=== PATIENT | female | born 1965 | race Caucasian/White ===

== ENCOUNTER → 2017-11-22 15:42 | Outpatient (CLI) | payer OTHER, SELFPAY | PROVIDERS: Family Provider Family Medicine; PCP Family Medicine; Visit Provider Otolaryngology Otolaryngology/Facial Plastic Surgery | DX: J32.9 Chronic sinusitis, unspecified (principal) | CPT/HCPCS: 87070; 87077; 87186; 87205 ==

== ENCOUNTER 2018-01-21 09:34 | Day surgery (SDC) | payer OTHER, SELFPAY ==
[2018-01-21] VITALS (7 sets, daily range): BP systolic 137–180; BP diastolic 89–103; PULSE 52–68; RESP 18; TEMP 36.3–36.5; O2SAT 94–99; BMI 35.8
--- NOTE | 2018-01-21 | ETH_PTH ---
PATIENT: LIVAN CRESPO LOC: [facility] [place] U#:[id number] AGE/SX: 52/F ROOM: RE01/21/[address]: Dr. Ugo Cunningham MD : 1965 BED: DIS: 01/21/2018 SPEC #: [id number] RECD: 01/21/18 15:08 STATUS: RYAN SHANTI #: [id number] VANNA: 01/21/18 00:[address]: Ugo Cunningham DEPT: SURGICAL PATHOLOGY RECD BY: Humphrey Kramer ENTERED: 01/21/18 15:09 SP TYPE: ETH TISS OTHR DR: Dr. Calderon Samson MD Tissues: A - Ethmoid sinus, NOS B - Ethmoid sinus, NOS Procedures: Decalcification bone/plaque Surgery Specimen Level IV HEADER OPERATION: Functional endoscopic sinus surgery PRE-OP DIAGNOSIS: Allergic rhinitis, chronic pansinusitis TISSUE SUBMITTED: A ? Right ethmoid/maxillary sinus contents, B ? Left ethmoid/maxillary sinus contents MICROSCOPIC DIAGNOSIS A. Right ethmoid/maxillary sinus contents: Fragments of respiratory mucosa including turbinates with chronic inflammation and bone. B. Left ethmoid/maxillary sinus contents: Fragments of respiratory mucosa including turbinates with chronic inflammation and bone. JOSE RAMON:oscar 01/24/18 MICROSCOPIC DESCRIPTION Slides are reviewed. GROSS DESCRIPTION A - Received in fixative is one container labeled with the patient's name and designated right ethmoid/ maxillary sinus contents. The specimen consists of multiple fragments of [place] soft tissue mixed with fragments of bone including the turbinates that in aggregate measure 4 x 3 x 0.3 cm. The entire specimen is submitted in two cassettes after decalcification. B - Received in fixative is one container labeled with the patient's name and designated left ethmoid/ maxillary sinus contents. The specimen consists of multiple fragments of hemorrhagic, frothy mucoid tissue mixed with fragments of bone including turbinates that in aggregate measure 5 x 5 x 0.3 cm. Electrical Supervisor tissue is submitted in three cassettes after decalcification. / JOSE RAMON:oscar 01/20/18 TC:3 CPT: 27221 x2, 45452 x2
--- NOTE | 2018-01-21 09:50 | EKG12_ITS ---
Test Reason : PRE-OP Blood Pressure : / mmHG Vent. Rate : 055 BPM Atrial Rate : 055 BPM P-R Int : 202 ms QRS Dur : 086 ms QT Int : 436 ms P-R-T Axes : 039 007 016 degrees QTc Int : 417 ms Sinus bradycardia Otherwise normal ECG Confirmed by JUSTO MORALES, ANDREW ([id number]), news videotape editor ALYSSA MAHMOOD ([id number]) on 01/29/2018 3:28:41 PM Referred By: Genaro Cunningham Confirmed By:ANDREW KEMP MD
[2018-01-21 10:24] LABS: Anion Gap 7 (5-15); BUN 13 mg/dL (7-18); BUN/Creat Ratio 16.6 RATIO (10-20); Calcium,Total 8.7 mg/dL (8.5-10.1); Chloride 106 mmol/L (98-107); Creatinine, Serum 0.78 mg/dL (0.55-1.02); EST Glomerular Filtration Rate 82 mL/min (>60); Est Glom Filt Rate - Afr Amer 100 mL/min (>60); Glucose 100 mg/dL (74-106); Potassium 4.2 mmol/L (3.5-5.1); Sodium Level 140 mmol/L (136-145)
[2018-01-21] MEDS: Oxymetazoline 0.05% 1 SPRAY SPRAY.BTL 15 SPRAY (10:46)
--- NOTE | 2018-01-21 10:46 | PCM.OPRPT ---
Problem List (1) Chronic pansinusitis Status: Chronic Report of Operation Date of Procedure: 01/21/18 Pre-Operative Diagnosis: chronic pansinusitis Post-Operative Diagnosis: chronic pansinusitis Surgery/Procedure Performed:: 1. endoscopic anterior ethmoidectomy, right and left. 2. endoscopic maxillary antrostomy, right and left. 3. frontal sinus exploration with tissue removal, right and left. 4. endoscopic sphenoidotomy with tissue removal, right and left. 5. computer image guidance Type of Anesthesia:: General Estimated Blood Loss (mL): 5cc Description of Procedure: on the day of the procedure, after appropriate informed consent was obtained, the patient was brought to the operating room and placed in supine position on the operating table. he was placed under general endotracheal anesthesia by the anesthesiologist. the endotracheal tube was secured, the eyes were lubricated. the image-guidance facial pads were placed. the bilateral nasal cavities were decongested with oxymetazoline-soaked pledgets. the zero degree endoscope was used to evaluate the nose. the right and left superior attachment of the middle turbinate and polyps were injected with lidocaine/epinephrine. the left nose was visualized with the endoscope. the acclarent balloon sinuplasty kit was used to probe the frontal sinus lateral to the superior attachment of the middle turbinate. the balloon was advanced after transillumination was seen in the frontal area and inflated to 12atm and removed. contents were evacuated. an antrostomy and uncinectomy was performed with a combination of a devi elevator and a blakesley. a back biter was used to widen the antrostomy and contents were removed. the ethmoid bulla was entered bluntly with a suction. an anterior ethmoidectomy was performed with a curette and an upgoing blakesley. this was taken superiorly to the skull base and laterally to the lamina. a stankewicz maneuver was performed and no laminar defect was seen. a mushroom punch was used to widen the natural sphenoid os and sphenoid contents were removed. endoscopic scizzors were used to remove the anterior/inferior portion of the middle turbinate. pledgets were placed and hemostasis was achieved. the right nose was visualized with the endoscope. the acclarent balloon sinuplasty kit was used to probe the frontal sinus lateral to the superior attachment of the middle turbinate. the balloon was advanced after transillumination was seen in the frontal area and inflated to 12atm and removed. contents were evacuated. an antrostomy and uncinectomy was performed with a combination of a devi elevator and a blakesley. a back biter was used to widen the antrostomy and contents were removed. the ethmoid bulla was entered bluntly with a suction. an anterior ethmoidectomy was performed with a curette and an upgoing blakesley. this was taken superiorly to the skull base and laterally to the lamina. a stankewicz maneuver was performed and no laminar defect was seen. a mushroom punch was used to widen the natural sphenoid os and sphenoid contents were removed. endoscopic scizzors were used to remove the anterior/inferior portion of the middle turbinate. pledgets were placed and hemostasis was achieved. the patient was awoken from anesthesia and transferred to the PACU in stable condition.
[2018-01-21] MEDS: Clindamycin 900 MG/50 ML BAG 75 MG IV (10:53)
--- NOTE | 2018-01-21 10:56 | PCM.DC ---
- Discharge Diagnoses Current Active Problems: Current Active and Chronic Problems Chronic pansinusitis (Chronic) You will use the following diet at home:: No restrictions Discharge Activity: Return to Normal Activity Call your doctor if your incision/area has: Increased Pain/ Swelling Additional Dressing/Incision Instructions:: irrigate nose 5-6 times per day with saline Allergies/Adverse Reactions: Allergies erythromycin base [Erythromycin Base] Adverse Reaction (Verified 01/14/18 14:33) Nausea/Vom/Diarrhea Medications to take at Discharge Atenolol [Tenormin (beta laina)] 25 mg PO DAILY 08/19/14 buPROPion SR [Wellbutrin Sr] 150 mg PO DAILY 08/19/14 ALPRAZolam [Xanax] 0.5 mg PO DAILY PRN PRN 05/19/15 Loratadine [Claritin] 10 mg PO PRN PRN 05/19/15 Ibuprofen [Motrin] 800 mg PO TID PRN PRN #20 tablet 02/22/16 Multivitamin [Daily Multiple Vitamin] 1 each PO DAILY 01/14/18 Doxycycline 100 mg PO DAILY #5 cap 01/21/18 Fluticasone 0.05% [Flonase Nasal [place]] 2 spray NASAL DAILY 01/21/18 Hydrocodone/Acetaminophen [[place] 5-325 Tablet] 1 ea PO Q6H PRN 3 Days #10 tab 01/21/18 MethylPREDNISolone DosePak [Medrol DosePak] 4 mg PO UD #1 box 01/21/18 The following prescriptions were given: Doxycycline 100 mg PO DAILY #5 cap MethylPREDNISolone DosePak [Medrol DosePak] 4 mg PO UD #1 box Hydrocodone/Acetaminophen [[place] 5-325 Tablet] 1 ea PO Q6H PRN 3 Days #10 tab PRN Reason: Pain Primary Care Physician: Calderon Samson MD [Primary Care Provider] - Please Follow Up With: Jori Cunningham MD When: 1 week
== END 2018-01-21 14:37 | disposition home or self-care (01) ==
LOC: SDC 09:36 → AC 09:36
PROVIDERS: Family Provider Family Medicine; PCP Family Medicine; Visit Provider Otolaryngology
PROC: (CPT 31259; principal; 2018-01-21 10:30)
DX: J32.4 Chronic pansinusitis (principal); I10 Essential (primary) hypertension; F32.9 Major depressive disorder, single episode, unspecified; J30.81 Allergic rhinitis due to animal (cat) (dog) hair and dander; J30.89 Other allergic rhinitis; J30.1 Allergic rhinitis due to pollen
CPT/HCPCS: 00160; 31259; 31267; 80048; 88305; 88311; 93005; J7120; J2405

== ENCOUNTER → 2018-11-24 13:58 | Outpatient (CLI) | payer OTHER, SELFPAY ==
--- NOTE | 2018-11-24 14:02 | BI_ITS ---
MAMMOGRAPHY - BILATERAL DIAGNOSTIC REASON FOR EXAM: Female, 53 years old. Right axillary thickening. PERTINENT HISTORY: Non-contributory. TECHNIQUE: Digital bilateral breast ray (3D mammographic acquisition) in the CC and MLO projections. 2-D mediolateral oblique (MLO) and craniocaudad (CC) views of both breasts were obtained. CAD: Full Field Digital Mammography with Computer Added Detection was performed. COMPARISON: Comparison is made with prior study dated August 19, 2015 and August 13, 2014. FINDINGS: Breast Composition: There are scattered areas of fibroglandular density. There are no dominant masses or suspicious calcifications. No other significant abnormalities are identified. There has been no significant change since the prior study. BI/DIAG MAMM W/CAD, BILAT IMPRESSION: Stable bilateral diagnostic mammogram. With the patient's history of fullness in the right axillary region, correlation with ultrasound is recommended. ASSESSMENT CATEGORY: BIRADS Category 0: Incomplete. Need additional imaging evaluation. A letter regarding these results will be sent to the patient by the facility within 30 days. Approximately 10% of breast cancers are not detected by mammography. A normal mammogram should not delay biopsy of a clinically suspicious abnormality. Electronically Signed: John Paul Smith, at 15:59 EDT , Service support ,
--- NOTE | 2018-11-24 14:15 | US_ITS ---
STUDY: ULTRASOUND BREAST - RIGHT REASON FOR EXAM: Female, 53 years old. Right axillary fullness. TECHNIQUE: Axial and longitudinal images of the RIGHT breast were performed with a high resolution ultrasound transducer. COMPARISON: Comparison is made with prior mammogram done earlier today. FINDINGS: RIGHT Breast: Dense fibroglandular tissue is seen in the upper outer quadrant of the right breast. No solid or cystic mass lesion is seen. US/Breast Limited Unilateral IMPRESSION: Unremarkable sonogram of the upper outer quadrant of the right breast. ASSESSMENT CATEGORY: BIRADS Category 2: Benign. A letter regarding these results will be sent to the patient by the facility within 30 days. Electronically Signed: John Paul Smith, at 16:00 EDT , Service support ,
== END ==
PROVIDERS: Family Provider Family Medicine; PCP Family Medicine; Referring Provider Obstetrics & Gynecology; Visit Provider Obstetrics & Gynecology
DX: N63.10 Unspecified lump in the right breast, unspecified quadrant (principal)
CPT/HCPCS: 76642; 77062; 77066; G0279

== ENCOUNTER 2021-09-08 10:13 | Outpatient (CLI) | payer OTHER, SELFPAY ==
--- NOTE | 2021-09-08 10:16 | BI_ITS ---
MAMMOGRAPHY - BILATERAL SCREENING REASON FOR EXAM: Female, 55 years old. Routine annual screening examination. PERTINENT HISTORY: Non-contributory. TECHNIQUE: Digital bilateral breast scooby (3D mammographic acquisition) in the CC and MLO projections. 2-D mediolateral oblique (MLO) and craniocaudad (CC) views of both breasts were obtained. CAD: Full Field Digital Mammography with Computer Added Detection was performed. COMPARISON: Comparison is made with prior study dated 08/19/2015 and 11/24/2018. FINDINGS: Breast Composition: There are scattered areas of fibroglandular density. There are no dominant masses or suspicious calcifications. No other significant abnormalities are identified. There has been no significant change since the prior study. BI/SCRN MAMM (CAD)W/SCOOBY BILAT IMPRESSION: Stable bilateral screening mammogram. Yearly follow-up mammogram recommended. (A) ASSESSMENT CATEGORY: BIRADS Category 1: Negative. A letter regarding these results will be sent to the patient by the facility within 30 days. Approximately 10% of breast cancers are not detected by mammography. A normal mammogram should not delay biopsy of a clinically suspicious abnormality. [id number] Electronically Signed: John Paul Smith MD at 12:17 EST , Service support ,
== END 2021-09-08 23:59 | disposition short-term general hospital (02) ==
PROVIDERS: PCP Student in an Organized Health Care Education/Training Program; Referring Provider Obstetrics & Gynecology; Visit Provider Obstetrics & Gynecology
DX: Z12.31 Encounter for screening mammogram for malignant neoplasm of breast (principal)
CPT/HCPCS: 77063; 77067

== ENCOUNTER → 2022-09-14 | Outpatient (CLI) | payer OTHER, SELFPAY ==
--- NOTE | 2022-09-14 08:57 | BI_ITS ---
MAMMOGRAPHY - BILATERAL SCREENING REASON FOR EXAM: Female, 56 years old. Routine annual screening examination. PERTINENT HISTORY: Non-contributory. TECHNIQUE: Digital bilateral breast scooby (3D mammographic acquisition) in the CC and MLO projections. 2-D mediolateral oblique (MLO) and craniocaudad (CC) views of both breasts were obtained. CAD: Full Field Digital Mammography with Computer Added Detection was performed. COMPARISON: Comparison is made with prior examination dated 09/08/2021 and 11/24/2018. FINDINGS: Breast Composition: There are scattered areas of fibroglandular density. There are no dominant masses or suspicious calcifications. Stable small benign-appearing bilateral axillary lymph nodes. No other significant abnormalities are identified. There has been no significant change since the prior study. BI/SCRN MAMM (CAD)W/SCOOBY BILAT IMPRESSION: Stable bilateral screening mammogram. Yearly follow-up mammogram recommended. (A) ASSESSMENT CATEGORY: BIRADS Category 2: Benign. A letter regarding these results will be sent to the patient by the facility within 30 days. Approximately 10% of breast cancers are not detected by mammography. A normal mammogram should not delay biopsy of a clinically suspicious abnormality. [id number] Electronically Signed: John Paul Smith MD at 10:02 EST ,
== END | disposition home or self-care (01) ==
LOC: OPBI 08:56
PROVIDERS: PCP Student in an Organized Health Care Education/Training Program; Referring Provider Student in an Organized Health Care Education/Training Program; Visit Provider Student in an Organized Health Care Education/Training Program
DX: Z12.31 Encounter for screening mammogram for malignant neoplasm of breast (principal)
CPT/HCPCS: 77063; 77067

== ENCOUNTER → 2023-10-16 | Outpatient (CLI) | payer OTHER, SELFPAY ==
--- NOTE | 2023-10-16 12:17 | BI_ITS ---
MAMMOGRAPHY - BILATERAL SCREENING REASON FOR EXAM: Female, 57 years old. Routine annual screening examination. PERTINENT HISTORY: Non-contributory. TECHNIQUE: Digital bilateral breast scooby (3D mammographic acquisition) in the CC and MLO projections. 2-D mediolateral oblique (MLO) and craniocaudad (CC) views of both breasts were obtained. CAD: Full Field Digital Mammography with Computer Added Detection was performed. COMPARISON: Comparison is made with prior study dated September 14, 2022 and September 08, 2021. FINDINGS: Breast Composition: There are scattered areas of fibroglandular density. There are no dominant masses or suspicious calcifications. Stable small benign-appearing bilateral axillary lymph nodes. No other significant abnormalities are identified. There has been no significant change since the prior study. BI/SCRN MAMM (CAD)W/SCOOBY BILAT IMPRESSION: Stable bilateral screening mammogram. Yearly follow-up mammogram recommended. (A) ASSESSMENT CATEGORY: BIRADS Category 2: Benign. A letter regarding these results will be sent to the patient by the facility within 30 days. Approximately 10% of breast cancers are not detected by mammography. A normal mammogram should not delay biopsy of a clinically suspicious abnormality. [id number] Electronically Signed: John Paul Smith MD at 13:44 EST ,
--- OUTSIDE RECORDS SUMMARY | 2023-10-16 12:29 | XMS RPT_ITS | CCD ---
Author Name Unknown Address [address] [place] [address] Organization [facility] Care Team Providers Care Ring Packer Name Role Phone RONDA DELGADO MD Consulting Unavailable KIKI HOLMAN Admitting Unavailable KIKI HOLMAN Primary Care Unavailable KIKI HOLMAN Attending Unavailable PROVIDER, UNKNOWN Consulting Unavailable PROVIDER, UNKNOWN Consulting Unavailable RONDA DELGADO MD Admitting Unavailable RONDA DELGADO MD Primary Care Unavailable RONDA DELGADO MD Consulting Unavailable RONDA DELGADO MD Attending Unavailable PROVIDER, UNKNOWN Consulting Unavailable PROVIDER, UNKNOWN Consulting Unavailable Problems Problem Classification Problem Date Documented Da te Episodic/Chronic Essential hypertension (1 source) Essential (primary) hypertension; Translations: [Essential (primary) hypertension] Onset: 09-16-2023 Chronic Residual codes; unclassified (1 source) Decreased libido; Translations: [Decreased libido] Onset: 09-16-2023 Episodic Results Test Name Value Interpretation Reference Range Facil ity Encounters Encounter Date Encounter Type Care Provider Facility Start: 09-16-2023 End: 09-16-2023 [facility] Start: 05-17-2023 End: 05-17-2023 ambulatory RONDA Gracia [facility] Payers Date Payer Category Payer Unknown [id number] 1965 Unknown [id number] Unknown [id number] Progress note 05-01-2021 Note Date & Type Note Facility 05-01-2021 Note HNO ID: [id number] Author: Aliza Wong Population Health Navigator Service: ? Author Type: ? Type: Progress Notes Filed: 05/01/2021 1:46 PM Note Text: POPULATION HEALTH NAVIGATION OUTREACH Action/FYI I left a voice message re: pcp No care everywhere Contact made with patient or family member? NO Pt identified by name and : NO Outreach Outcome/Action Unable to reach patient: Left message Reason for Outreach Attribution: Provider Off-boarding Payer: No coverage found. Care Gap Reviewed:: Reminder: Reminder note to check Health Maintenance for items below Health Maintenance items due: DEPRESSION SCREENING Never done COVID-19 VACCINE(1) Never done HEPATITIS C SCREENING Never done HIV SCREENING Never done DTAP,TDAP,TD(1 - Tdap) Never done HPV TESTING Never done MAMMOGRAM Never done PAP TESTING due on 02/13/2009 LIPID SCREEN Never done DIABETES SCREEN Never done SHINGRIX VACCINE(1 of 2) Never done Advanced Directives Completed: Have you ever planned for future healthcare decisions with a power of state's attorney, living will, or advance directives? No. Please bring a copy to your next appointment or email to [email or web address] Referrals: N/A Message Sent to Practice: NO Navigation Signature: Aliza Wong Population Health Navigator May 01, 2021 1:45 PM [facility] Clinical Note 05-01-2021 Note Date & Type Note Facility 05-01-2021 Note Patient Outreach (NE TNAV) LIVAN CRESPO ([id number]) 1965 F Date Time Provider Department 05/01/21 ALIZA WONG During your visit today, we recorded the following information about you: Aliza Wong Population Health Navigator 05/01/2021 1:46 PM Signed POPULATION HEALTH NAVIGATION OUTREACH Action/FYI I left a voice message re: pcp No care everywhere Contact made with patient or family member? NO Pt identified by name and : NO Outreach Outcome/Action Unable to reach patient: Left message Reason for Outreach Attribution: Provider Off-boarding Payer: No coverage found. Care Gap Reviewed:: Reminder: Reminder note to check Health Maintenance for items below Health Maintenance items due: DEPRESSION SCREENING Never done COVID-19 VACCINE(1) Never done HEPATITIS C SCREENING Never done HIV SCREENING Never done DTAP,TDAP,TD(1 - Tdap) Never done HPV TESTING Never done MAMMOGRAM Never done PAP TESTING due on 02/13/2009 LIPID SCREEN Never done DIABETES SCREEN Never done SHINGRIX VACCINE(1 of 2) Never done Advanced Directives Completed: Have you ever planned for future healthcare decisions with a power of state's attorney, living will, or advance directives? No. Please bring a copy to your next appointment or email to Referrals: N/A Message Sent to Practice: NO Navigation Signature: Aliza Wong Population Health Navigator May 01, 2021 1:45 PM Allergies As of Date: 05/01/2021 Noted Allergy Reaction EMYCIN (ERYTHROMYCIN) 09/02/2015 8 - GI Upset Date Reviewed: 03/13/2019 Reviewed by: Vi (Rn) JOVANY James - Fully Assessed Reason for Visit: Population Health Navigation Outreach [3910] Cmt: Offboarding Prescriptions as of 05/01/2021 - glucosam/chond-msm1/C/antione/bor ([id number]-IERFT-TTV COMPLEX ORAL) Take by mouth once daily. - omega 3-gbd-kws-fish oil 500-100-1,000 mg cap Take by mouth once daily. - TURMERIC ORAL Take by mouth once daily. - atenolol (TENORMIN) 25 mg tablet Take 25 mg by mouth once daily. - buPROPion SR (ZYBAN SR; WELLBUTRIN SR) 150 mg 12 hr tablet Take 150 mg by mouth twice daily. Problem List As Of Date: 05/01/2021 (None) Encounter Status:Closed by JUDITH POPULATION HEALTH NAVIGALIZA RICE on 05/01/21 [facility] Summary Purpose Family History No Family History Records FoundNo Family History Records Found Advance Directives No Advanced Directives Records FoundNo Advanced Directives Records Found Additional Source Comments INFORMATION SOURCE (unrecogn ized section and content) DATE CREATED AUTHOR AUTHOR'S ORGANIZ ATION 09/16/2023 [facility] FOR RECORDS PERTAINING TO PATIENTS WHO ARE OR HAVE BEEN ENROLLED IN A CHEMICAL DEPENDENCY/SUBSTANCEABUSE PROGRAM, SOME INFORMATION MAY BE OMITTED. This clinical summary was aggregated from multiple sources. Caution should be exercised in using it in the provision of clinical care. This summary normalizes information from multiple sources, and as a consequence, information in this document may materially change the coding, format and clinical context of patient data. In addition, data may be omitted in some cases. CLINICAL DECISIONS SHOULD BE BASED ON THE PRIMARY CLINICAL RECORDS. [employer] [facility]. provides no warranty or guarantee of the accuracy or completeness of information in this document.
== END | disposition home or self-care (01) ==
LOC: OPBI 12:16
PROVIDERS: PCP Student in an Organized Health Care Education/Training Program; Referring Provider Student in an Organized Health Care Education/Training Program; Visit Provider Student in an Organized Health Care Education/Training Program
DX: Z12.31 Encounter for screening mammogram for malignant neoplasm of breast (principal)
CPT/HCPCS: 77063; 77067

== ENCOUNTER → 2024-11-25 | Outpatient (CLI) | payer OTHER, SELFPAY ==
--- NOTE | 2024-11-25 10:36 | BI_ITS ---
EXAM: SCRN MAMM (CAD)W/SCOOBY BILAT 11/25/2024
== END | disposition home or self-care (01) ==
PROVIDERS: PCP Student in an Organized Health Care Education/Training Program; Referring Provider Student in an Organized Health Care Education/Training Program; Visit Provider Student in an Organized Health Care Education/Training Program
DX: Z12.31 Encounter for screening mammogram for malignant neoplasm of breast (principal)
CPT/HCPCS: 77063; 77067